=== PATIENT | male | born 1970 | race Caucasian/White ===

== ENCOUNTER 2017-08-05 22:59 | Emergency (ER) | payer OTHER ==
[2017-08-05] MEDS ORDERED: NORCO 10-325 T1 EACH PO (23:22)
[2017-08-05] MEDS ORDERED: ZOLOFT100 M1 PO (23:23)
[2017-08-05] MEDS ORDERED: GABAPENTIN600 M2 PO (23:23)
[2017-08-05] MEDS ORDERED: IBUPROFEN600 M1 PO (23:37)
[2017-08-05] MEDS ORDERED: PERCOCET 5-3251 EACH PO (23:40)
[2017-08-06] MEDS ORDERED: SILVADENE20 G1 TP (00:16)
== END 2017-08-06 00:20 ==
LOC: EDMED 22:59
DX: T22.212A Burn of second degree of left forearm, initial encounter (principal); T23.102A Burn of first degree of left hand, unspecified site, initial encounter; T31.0 Burns involving less than 10% of body surface; J45.909 Unspecified asthma, uncomplicated; F17.200 Nicotine dependence, unspecified, uncomplicated; X08.8XXA Exposure to other specified smoke, fire and flames, initial encounter
CPT/HCPCS: J1170; J2270